=== PATIENT | male | born 1965 | race Caucasian/White ===

== ENCOUNTER 2019-12-02 13:50 | Emergency (ER) | payer OTHER ==
[2019-12-02] MEDS ORDERED: NORMAL SALINE 1000 ML 1,000 ML IV ONE (14:09)
[2019-12-02] MEDS ORDERED: DIPH/PERTUSS(ACELL)/TETANUS VAC/PF 0.5 ML SYR (>=10YO) IM ONE ×2 (14:10→17:45)
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
[2019-12-02 14:41] LABS: HEMATOCRIT 32.4 % (37.9-51.0); HEMOGLOBIN 10.9 g/dL (13.5-17.0); MEAN CORPUSCULAR HEMOGLOBIN 26.8 pg (27.0-33.4); MEAN CORPUSCULAR HGB CONC 33.8 g/dL (32.0-36.0); MEAN CORPUSCULAR VOLUME 79 fl (80-97); RED BLOOD COUNT 4.08 10^6/uL (4.35-5.55); RED CELL DISTRIBUTION WIDTH 16.2 % (11.5-14.0); WHITE BLOOD COUNT 3.6 10^3/uL (4.0-10.5)
[2019-12-02 14:52] LABS: PLATELET COUNT 87 10^3/uL (150-450)
[2019-12-02 15:00] LABS: ABSOLUTE LYMPHOCYTES# (MANUAL) 0.6 10^3/uL (0.5-4.7); ABSOLUTE MONOCYTES # (MANUAL) 0.6 10^3/uL (0.1-1.4); ALBUMIN 3.6 g/dL (3.5-5.0); ALKALINE PHOSPHATASE 233 U/L (38-126); ANION GAP 8 (5-19); ASPARTATE AMINO TRANSFERASE 64 U/L (17-59); BASOPHILS % (MANUAL) 0 % (0-2); BILIRUBIN,DIRECT 0.6 mg/dL (0.0-0.4); BILIRUBIN,TOTAL 0.8 mg/dL (0.2-1.3); BLOOD UREA NITROGEN 13 mg/dL (7-20); CALCIUM 9.2 mg/dL (8.4-10.2); CARBON DIOXIDE 24 mmol/L (22-30); CHLORIDE 105 mmol/L (98-107); EOSINOPHILS % (MANUAL) 0 % (0-6); GLUCOSE 334 mg/dL (75-110); LYMPHOCYTES % (MANUAL) 17 % (13-45); MONOCYTES % (MANUAL) 18 % (3-13); POTASSIUM 4.1 mmol/L (3.6-5.0); SEGMENTED NEUTROPHILS % (MAN) 65 % (42-78); TOTAL CELLS COUNTED 100; TOTAL PROTEIN 7.3 g/dL (6.3-8.2)
[2019-12-02 15:01] LABS: ANISOCYTOSIS SLIGHT; POIKILOCYTOSIS 1+
[2019-12-02 15:02] LABS: PLATELET COMMENT ADEQUATE; POLYCHROMASIA SLIGHT
--- NOTE | 2019-12-02 15:08 | RADIOLOGY REPORT (SQ) ---
EXAM DESCRIPTION: HIP RIGHT AP/LATERAL IMAGES COMPLETED DATE/TIME: 12/02/2019 2:48 pm REASON FOR STUDY: r hip pain COMPARISON: None. NUMBER OF VIEWS: Two views. TECHNIQUE: AP pelvis and additional frog leg view of the right hip. LIMITATIONS: None. FINDINGS: MINERALIZATION: Normal. RIGHT HIP: No fracture or dislocation. No worrisome bone lesions. LEFT HIP: No fracture or dislocation. No worrisome bone lesions. Limited views. PUBIS AND ISCHIUM: No fracture. PELVIS: No fracture. SACRUM: No fracture or dislocation. No worrisome bone lesions. LOWER LUMBAR SPINE: No fracture identified. Degenerative Disc disease. SOFT TISSUES: No findings. OTHER: No other significant finding. IMPRESSION: No fracture identified. COMMENT: Pelvic fractures are often occult on plain radiographs. If strong clinical suspicion for fracture, recommend CT or MR. TECHNICAL DOCUMENTATION: JOB ID: [id number] [place]-72 2010 [employer]- All Rights Reserved Reading location - IP/workstation name: [email or web address]
--- NOTE | 2019-12-02 15:20 | RADIOLOGY REPORT (SQ) ---
EXAM DESCRIPTION: L SPINE WHOLE IMAGES COMPLETED DATE/TIME: 12/02/2019 2:48 pm REASON FOR STUDY: low back pain COMPARISON: None. NUMBER OF VIEWS: Five views including obliques. TECHNIQUE: AP, lateral, oblique, and sacral radiographic images acquired of the lumbar spine. LIMITATIONS: None. FINDINGS: MINERALIZATION: Normal. SEGMENTATION: Normal. No transitional anatomy. ALIGNMENT: Normal. VERTEBRAE: Minimal chronic appearing endplate irregularities. No acute appearing fracture. DISCS: Multilevel disc space narrowing with osteophytes. POSTERIOR ELEMENTS: Posterior decompression at the L3-4 levels. . Facet arthropathy is present. HARDWARE: Posterior fusion at the L3-4 level. PARASPINAL SOFT TISSUES: Atherosclerotic calcifications. PELVIS: Intact as visualized. No fractures or worrisome bone lesions. SI joints intact. OTHER: No other significant finding. IMPRESSION: No acute findings. Intact Posterior fusion hardware at the L3-4 level. Multilevel dege nerative changes. TECHNICAL DOCUMENTATION: JOB ID: [id number] [place]-72 2010 [employer]- All Rights Reserved Reading location - IP/workstation name: [email or web address]
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
[2019-12-02 19:59] VITALS: BP 151/85
== END 2019-12-02 19:59 | disposition home or self-care (01) ==
LOC: ER 13:50
DX: G89.29 Other chronic pain (principal); M54.5 Low back pain; M25.551 Pain in right hip; E11.65 Type 2 diabetes mellitus with hyperglycemia; F17.210 Nicotine dependence, cigarettes, uncomplicated; Z88.0 Allergy status to penicillin; Z98.1 Arthrodesis status; Z23 Encounter for immunization
CPT/HCPCS: 99285; 96372; 96360; 96361; 36415; 85025; 80053; 83036; 73502; 72110; 90715; J7030